=== PATIENT | male | born 1965 | race African-American/Black ===

== ENCOUNTER 2018-07-01 09:42 | Emergency (ER) | payer MEDICAID ==
[~2018-07-01] VITALS: Ht 180.3 cm; Wt 90.0 kg
[2018-07-01] MEDS ORDERED: SULFAMETHOXAZOLE/TRIMETHOPRIM 800/160MG TABLET PO ONE (10:30)
[2018-07-01] MEDS ORDERED: DOXYCYCLINE HYCLATE 100MG CAPSULE PO ONE (10:30)
[2018-07-01 11:51] LABS: BASOPHILS % 0.4 % (0.0-2.0); EOSINOPHILS % 1.7 % (0.0-5.0); HEMATOCRIT. 42.1 % (42.0-52.0); HEMOGLOBIN. 14.4 g/dL (14.0-18.0); LYMPHOCYTES % 23.2 % (20.0-50.0); MEAN CORPUSCULAR HEMOGLOBIN 30.8 pg (28.0-32.0); MEAN CORPUSCULAR VOLUME 90.5 fL (80.0-94.0); MEAN PLATELET VOLUME 10.7 fl (7.4-10.4); MONOCYTES % 9.2 % (2.0-8.0); NEUTROPHILS % 65.5 % (40.0-76.0); PLATELET 154 x1000/uL (130-400); RED BLOOD CELL COUNT 4.65 mill/uL (4.7-6.1); RED CELL DISTRIBUTION WIDTH 15.1 % (11.6-14.6)
[2018-07-01 11:57] LABS: CHLORIDE 111 mEq/L (98-107)
[2018-07-01 14:15] VITALS: BP 120/72
== END 2018-07-01 14:48 | disposition home or self-care (01) ==
LOC: ER 10:02
DX: L97.529 Non-pressure chronic ulcer of other part of left foot with unspecified severity (principal); B35.3 Tinea pedis; Z88.0 Allergy status to penicillin
CPT/HCPCS: 36415; 73600; 73620; 83605; 99284